=== PATIENT | male | born 1995 | race Hispanic/Latino ===

== ENCOUNTER 2018-04-04 20:11 | Emergency (ER) | payer SELFPAY ==
--- NOTE | 2018-04-04 21:23 | RAD REPORT ---
EXAM DESCRIPTION: CT - Head Brain Wo Cont - 04/04/2018 9:03 pm CLINICAL HISTORY: Headache and numbness COMPARISON: February 2017 TECHNIQUE: Computed axial tomography of the head was obtained. IV contrast was not requested. All CT scans are performed using dose optimization technique as appropriate and may include automated exposure control or mA/KV adjustment according to patient size. FINDINGS: An intracranial bleed is not seen . The ventricles are normal in caliber. No extra-axial fluid collection is noted. Fluid within the sinuses/ mastoids is not seen. IMPRESSION: No acute intracranial abnormality is seen. If patient's symptoms persist MRI of the bra in would be recommended.
--- NOTE | 2018-04-04 21:48 | EDPHYS ---
Physician Documentation [facility] Name: Zachary Davila Age: 22 yrs Sex: Male : 1995 Arrival Date: 04/04/2018 Time: 20:13 Bed 20 Private MD: ED Physician Cade Nguyen HPI: 04/04 20:45 This 22 yrs old Male presents to ER via Ambulatory with complaints of Numb on rn side of head for 3 days, Pain behind eye area. 20:45 The patient complains of pain to the right mormon, right side of the back of head and rn right occipital area. Onset: The symptoms/episode began/occurred 3 day(s) ago. Associated signs and symptoms: Pertinent positives: paresthesias, Pertinent negatives: altered mental status, fever, neck stiffness, rash, vision changes, vision loss, vomiting, weakness, vertigo. Headache History: The patient has had previous headaches and this one is similar to previous episodes. The patient has experienced similar episodes in the past. Reports headaches, pain behind right eye, +tingling over right scalp, reports on and off for months, worse over last 3 days, worse when bending over and bearing down, no trauma, no vision changes, reports gets bad to where he can't do anything, then goes away completely. No recent drug use but drug use in past. NO trauma. NO fever. . Historical: - Allergies: 20:28 NKA; aj1 - Home Meds: 20:28 None [Active]; aj1 - PMHx: 20:28 Anxiety; aj1 - PSHx: 20:28 None; aj1 - Immunization history:: Flu vaccine is not up to date. - Social history:: Smoking status: Patient uses tobacco products, denies chronic smoking, but will smoke occasionally. - Ebola Screening: : Patient denies travel to an Ebola-affected area in the 21 days before illness onset. - Family history:: not pertinent. - Hospitalizations: : No recent hospitalization is reported. ROS: 20:45 Constitutional: Negative for fever, chills, and weight loss, Eyes: Negative for injury, rn pain, redness, and discharge, Neck: Negative for injury, pain, and swelling, Cardiovascular: Negative for chest pain, palpitations, and edema, Respiratory: Negative for shortness of breath, cough, wheezing, and pleuritic chest pain, Abdomen/GI: Negative for abdominal pain, nausea, vomiting, diarrhea, and constipation, MS/Extremity: Negative for injury and deformity, Skin: Negative for injury, rash, and discoloration, Neuro: No current headache, + numbness of right scalp Exam: 20:45 Constitutional: This is a well developed, well nourished patient who is awake, alert, rn and in no acute distress. Head/Face: Normocephalic, atraumatic. Eyes: Pupils equal round and reactive to light, extra-ocular motions intact. Lids and lashes normal. Conjunctiva and sclera are non-icteric and not injected. Cornea within normal limits. Periorbital areas with no swelling, redness, or edema. ENT: Nares patent. No nasal discharge, no septal abnormalities noted. Oropharynx with no redness, swelling, or masses, exudates, or evidence of obstruction, uvula midline. Mucous membranes moist. Neck: Trachea midline, no thyromegaly or masses palpated, and no cervical lymphadenopathy. Supple, full range of motion without nuchal rigidity, or vertebral point tenderness. No Meningismus. Skin: Warm, dry with normal turgor. Normal color with no rashes, no lesions, and no evidence of cellulitis. MS/ Extremity: Pulses equal, no cyanosis. Neurovascular intact. Full, normal range of motion. Equal circumference. Neuro: Awake and alert, GCS 15, oriented to person, place, time, and situation. Cranial nerves II-XII grossly intact. Motor strength 5/5 in all extremities. Sensory grossly intact. Cerebellar exam normal. Normal gait. Vital Signs: 20:28 BP 127 / 85; Pulse 78; Resp 16; Temp 97.1; Pulse Ox 99% on R/A; Weight 68.04 kg (R); aj1 Height 5 ft. 4 in. (162.56 cm) (R); Pain 9/10; 20:28 Body Mass Index 25.75 (68.04 kg, 162.56 cm) aj1 [place] Coma Score: 21:45 Eye Response: spontaneous(4). Verbal Response: oriented(5). Motor Response: obeys rn commands(6). Total: 15. MDM: 20:35 Patient medically screened. rn 21:45 Differential diagnosis: hypertensive headache, migraine, tension headache, vasomotor rn headache. Data reviewed: vital signs, nurses notes, radiologic studies, CT scan, and as a result, I will discharge patient. Counseling: I had a detailed discussion with the patient and/or guardian regarding: the historical points, exam findings, and any diagnostic results supporting the discharge/admit diagnosis, radiology results, the need for outpatient follow up, to return to the emergency department if symptoms worsen or persist or if there are any questions or concerns that arise at home. Special discussion: I discussed with the patient/guardian in detail that at this point there is no indication for admission to the hospital. It is understood, however, that if the symptoms persist or worsen the patient needs to return immediately for re-evaluation. Based on the history and exam findings, there is no indication for further emergent testing or inpatient evaluation. I discussed with the patient/guardian the need to see the neurologist for further evaluation of the symptoms. 04/04 20:45 Order name: CT Head Brain wo Cont; Complete Time: 21:29 rn Administered Medications: No medications were administered Disposition: 04/04/18 21:47 Discharged to Home. Impression: Headache, Episodic cluster headache. - Condition is Stable. - Discharge Instructions: Cluster Headache, General Headache Without Cause. - Medication Reconciliation Form, Thank You Letter, Antibiotic Education, Prescription Opioid Use form. - Follow up: Private Physician; When: As needed; Reason: Recheck today's complaints, Re-evaluation by your physician. - Problem is chronic. - Symptoms have improved. Signatures: Dispatcher [employer] EDMS Cherri Bonilla RN RN aj1 Cade Nguyen MD MD rn Krenek, Amber, RN RN ak1 Corrections: (The following items were deleted from the chart) 21:52 21:47 04/04/2018 21:47 Discharged to Home. Impression: Headache; Episodic cluster ak1 headache. Condition is Stable. Forms are Medication Reconciliation Form, Thank You Letter, Antibiotic Education, Prescription Opioid Use. Follow up: Private Physician; When: As needed; Reason: Recheck today's complaints, Re-evaluation by your physician. Problem is chronic. Symptoms have improved. rn
--- NOTE | 2018-04-04 21:48 | ER ---
Nurse's Notes [facility] Name: Zachary Davila Age: 22 yrs Sex: Male : 1995 Arrival Date: 04/04/2018 Time: 20:13 Bed 20 Private MD: Diagnosis: Headache;Episodic cluster headache Presentation: 04/04 20:24 Presenting complaint: Patient states: He can feel the skin on his scalp on the right aj1 side of his head but "its numb on the inside" and it hurts behind his eyes. Reports that this has been going on for the past 3 days, but he has had numerous episodes like this. Patient reports he was seen for the same complaint in this ER one year ago. He is also hearing a beeping sound in his ears. Hand lockstitch sleeve setter are equal bilaterally, equal smile and eyebrow raises. Speech is clear. Transition of care: patient was not received from another setting of care. Onset of symptoms was April 01, 2018. Risk Assessment: Do you want to hurt yourself or someone else? Patient reports no desire to harm self or others. Initial Sepsis Screen: Does the patient meet any 2 criteria? No. Patient's initial sepsis screen is negative. Does the patient have a suspected source of infection? No. Patient's initial sepsis screen is negative. Care prior to arrival: None. 20:24 Method Of Arrival: Ambulatory aj1 20:24 Acuity: NIDIA 3 aj1 Triage Assessment: 20:28 General: Appears uncomfortable, Behavior is cooperative, anxious. Pain: Pain currently aj1 is 9 out of 10 on a pain scale. Neuro: Level of Consciousness is awake, alert, obeys commands, Oriented to person, place, time, situation, Sql Architect are equal bilaterally Moves all extremities. Gait is steady, Speech is normal, Facial symmetry appears normal. Cardiovascular: Patient's skin is warm and dry. Respiratory: Airway is patent Respiratory effort is even, unlabored, Respiratory pattern is regular, symmetrical. Historical: - Allergies: 20:28 NKA; aj1 - Home Meds: 20:28 None [Active]; aj1 - PMHx: 20:28 Anxiety; aj1 - PSHx: 20:28 None; aj1 - Immunization history:: Flu vaccine is not up to date. - Social history:: Smoking status: Patient uses tobacco products, denies chronic smoking, but will smoke occasionally. - Ebola Screening: : Patient denies travel to an Ebola-affected area in the 21 days before illness onset. - Family history:: not pertinent. - Hospitalizations: : No recent hospitalization is reported. Screenin:56 Abuse screen: Denies threats or abuse. Denies injuries from another. Nutritional ak1 screening: No deficits noted. Tuberculosis screening: No symptoms or risk factors identified. Fall Risk None identified. Assessment: 20:56 General: Appears in no apparent distress. Behavior is calm, cooperative. Pain: ak1 Complains of pain in right occipital area and right side of the back of head and right gnosticism. Neuro: Level of Consciousness is awake, alert, obeys commands, Oriented to person, place, time, situation, Sql Architect are equal bilaterally Moves all extremities. Gait is steady, Speech is normal, Facial symmetry appears normal. Cardiovascular: No deficits noted. Respiratory: No deficits noted. GI: No signs and/or symptoms were reported involving the gastrointestinal system. : No signs and/or symptoms were reported regarding the genitourinary system. EENT: No signs and/or symptoms were reported regarding the EENT system. Derm: No signs and/or symptoms reported regarding the dermatologic system. Musculoskeletal: No signs and/or symptoms reported regarding the musculoskeletal system. Vital Signs: 20:28 BP 127 / 85; Pulse 78; Resp 16; Temp 97.1; Pulse Ox 99% on R/A; Weight 68.04 kg (R); aj1 Height 5 ft. 4 in. (162.56 cm) (R); Pain 9/10; 20:28 Body Mass Index 25.75 (68.04 kg, 162.56 cm) aj1 [place] Coma Score: 21:45 Eye Response: spontaneous(4). Verbal Response: oriented(5). Motor Response: obeys rn commands(6). Total: 15. ED Course: 20:13 Patient arrived in ED. do 20:28 Triage completed. aj1 20:28 Arm band placed on Patient placed in an exam room. aj1 20:35 Cade Nguyen MD is Attending Physician. rn 20:50 Lilliana Hector RN is Primary Nurse. ak1 20:[address] via wheelchair. cw1 20:56 Patient has correct armband on for positive identification. Bed in low position. Call ak1 light in reach. Side rails up X 1. Pulse ox on. NIBP on. 20:58 No provider procedures requiring assistance completed. ak1 21:02 CT Head Brain wo Cont In Process Unspecified. EDMS 21:52 Patient did not have IV access during this emergency room visit. ak1 Administered Medications: No medications were administered Outcome: 21:47 Discharge ordered by . rn 21:51 Discharged to home ambulatory. ak1 21:51 Condition: good 21:51 Discharge instructions given to patient, Instructed on discharge instructions, follow up and referral plans. Demonstrated understanding of instructions, follow-up care. 21:52 Patient left the ED. ak1 Signatures: Dispatcher [employer] EDDE Cherri Bonilla RN RN aj1 Cade Nguyen MD MD rn Woodley, Crystal cwLilliana Levine RN RN ak1 Valarie Manning do
== END 2018-04-04 21:52 | disposition home or self-care (01) ==
LOC: ER 20:11
DX: G44.019 Episodic cluster headache, not intractable (principal); Z72.0 Tobacco use
CPT/HCPCS: 70450; 99284

== ENCOUNTER 2019-03-31 11:40 | Emergency (ER) | payer SELFPAY ==
[2019-03-31] MEDS ORDERED: LIDOCAINE 1% MPF 5 ML VIAL ONE (13:31)
[2019-03-31] MEDS ORDERED: BUPIVACAINE 0.5% PF 10 ML VIAL ONE (13:31)
[2019-03-31] MEDS ORDERED: IBUPROFEN 400 MG TAB ONE (13:38)
--- NOTE | 2019-03-31 14:32 | EDPHYS ---
Physician Documentation [facility] Name: Zachary Davila Age: 23 yrs Sex: Male : 1995 Arrival Date: 03/31/2019 Time: 11:42 Bed 6 Private MD: ED Physician Bobby Montenegro HPI: 03/31 13:15 This 23 yrs old Male presents to ER via Ambulatory with complaints of Ingrown cp Toenail. 13:15 The patient presents with pain, that is acute. The complaints affect the Left great cp toe. Context: resulted from an unknown cause, the patient can fully bear weight, the patient is able to ambulate, with mild difficulty. Onset: The symptoms/episode began/occurred yesterday. Historical: - Allergies: 12:14 NKA; aj1 - Home Meds: 12:14 None [Active]; aj1 - PMHx: 12:14 Anxiety; aj1 - PSHx: 12:14 None; aj1 - Immunization history:: Flu vaccine is not up to date. - Social history:: Smoking status: Patient uses tobacco products, denies chronic smoking, but will smoke occasionally. - Ebola Screening: : Patient denies travel to an Ebola-affected area in the 21 days before illness onset. ROS: 13:20 MS/extremity: Positive for pain, swelling, tenderness, of the left great toe, Negative cp for injury or acute deformity. 13:20 Constitutional: Negative for body aches, chills, fever, poor PO intake. 13:20 Cardiovascular: Negative for chest pain. 13:20 Respiratory: Negative for cough, shortness of breath, wheezing. 13:20 All other systems are negative. Exam: 13:30 Constitutional: The patient appears in no acute distress, alert, awake, non-toxic, well cp developed, well nourished. 13:30 Head/Face: Normocephalic, atraumatic. cp 13:30 Cardiovascular: Rate: normal, Rhythm: regular. 13:30 Respiratory: the patient does not display signs of respiratory distress, Respirations: normal. 13:30 Abdomen/GI: Inspection: abdomen appears normal. 13:30 Musculoskeletal/extremity: Extremities: grossly normal except: noted in the medial aspect nail left great toe: erythema, pain, swelling, tenderness, Perfusion: the extremity is normally perfused throughout, Sensation intact. Vital Signs: 12:14 BP 133 / 77; Pulse 79; Resp 18; Temp 98.2; Pulse Ox 99% on R/A; Weight 72.57 kg (R); aj1 Height 5 ft. 4 in. (162.56 cm) (R); 12:14 Body Mass Index 27.46 (72.57 kg, 162.56 cm) aj Procedures: 14:10 Performed Ingrown nail removal. Partial digital block performed with 5 ccs of mixture cp of 1% lidocaine w/o epi and 0.5% marcaine of left great toe. Toe cleaned with Betadine and using hemostats, partial nail removal of medial aspect of nail. Area cleaned and dressed. Patient tolerated well. MDM: 13:04 Patient medically screened. cp 14:00 Differential diagnosis: fracture, gout, cellulitis. cp 14:30 Data reviewed: vital signs, nurses notes, and as a result, I will discharge patient. cp 14:30 Counseling: I had a detailed discussion with the patient and/or guardian regarding: the cp historical points, exam findings, and any diagnostic results supporting the discharge/admit diagnosis, to return to the emergency department if symptoms worsen or persist or if there are any questions or concerns that arise at home. 14:30 Response to treatment: the patient's symptoms have markedly improved after treatment, cp and as a result, I will discharge patient. 03/31 13:11 Order name: Dressing - Wound; Complete Time: 13:32 cp 03/31 13:11 Order name: Gloves, Sterile; Complete Time: 13:28 cp 03/31 13:11 Order name: Setup Suture Tray; Complete Time: 13:28 cp Administered Medications: 13:27 Drug: Lidocaine (1 %) 10 ml Volume: 5 ml; Route: Infiltration; sg 13:35 Drug: Marcaine (0.5 %) 10 ml {Note: medication to be administered by Christofer Bassett} sg Volume: 10 ml; Route: Infiltration; 13:36 Drug: Ibuprofen 800 mg Route: PO; sg 14:45 Follow up: Response: No adverse reaction sg Disposition: 15:00 Chart complete. cp Disposition: 03/31/19 14:31 Discharged to Home. Impression: Ingrowing nail - left great toe. - Condition is Stable. - Discharge Instructions: Ingrown Toenail. - Prescriptions for Keflex 500 mg Oral Capsule - take 1 capsule by ORAL route every 6 hours for 10 days; 40 capsule. Ibuprofen 800 mg Oral Tablet - take 1 tablet by ORAL route every 8 hours As needed take with food; 30 tablet. - Work release form, Medication Reconciliation Form, Thank You Letter, Antibiotic Education, Prescription Opioid Use form. - Follow up: Av Mooney DPM; When: 48 Hours; Reason: Worsening of condition. - Problem is new. - Symptoms have improved. Addendum: 04/02/2019 07:41 Co-signature as Attending Physician, Bobby Montenegro MD I agree with the assessment and k dr plan of care. Signatures: Cherri Bonilla RN RN aj1 Hakeem Nobles RN RN sg Bobby Montenegro MD MD [facility] Juice Tineo PA PA cp Corrections: (The following items were deleted from the chart) 03/31 14:32 14:31 03/31/2019 14:31 Discharged to Home. Impression: Ingrowing nail. Condition is cp Stable. Forms are Medication Reconciliation Form, Thank You Letter, Antibiotic Education, Prescription Opioid Use. Follow up: Av Mooney; When: 48 Hours; Reason: Worsening of condition. Problem is new. Symptoms have improved. cp 14:48 14:32 03/31/2019 14:31 Discharged to Home. Impression: Ingrowing nail - left great toe. sg Condition is Stable. Discharge Instructions: Ingrown Toenail. Forms are Medication Reconciliation Form, Thank You Letter, Antibiotic Education, Prescription Opioid Use. Follow up: Avdia Mooney; When: 48 Hours; Reason: Worsening of condition. Problem is new. Symptoms have improved. cp
--- NOTE | 2019-03-31 14:32 | ER ---
Nurse's Notes [facility] Name: Zachary Davila Age: 23 yrs Sex: Male : 1995 Arrival Date: 03/31/2019 Time: 11:42 Bed 6 Private MD: Diagnosis: Ingrowing nail-left great toe Presentation: 03/31 12:13 Presenting complaint: Patient states: "I have an ingrown toenail and I can't walk and I aj1 can't go to work" Reports the pain started yesterday. Denies fever. Transition of care: patient was not received from another setting of care. Onset of symptoms was 2018. Risk Assessment: Do you want to hurt yourself or someone else? Patient reports no desire to harm self or others. Initial Sepsis Screen: Does the patient meet any 2 criteria? No. Patient's initial sepsis screen is negative. Does the patient have a suspected source of infection? No. Patient's initial sepsis screen is negative. Care prior to arrival: None. 12:13 Method Of Arrival: Ambulatory aj 12:13 Acuity: NIDIA 4 aj1 Triage Assessment: 12:14 General: Appears in no apparent distress. comfortable, Behavior is calm, cooperative, aj1 appropriate for age. Pain: Complains of pain in left foot Pain currently is 9 out of 10 on a pain scale. Neuro: Level of Consciousness is awake, alert, obeys commands. Cardiovascular: Patient's skin is warm and dry. Respiratory: Airway is patent Respiratory effort is even, unlabored, Respiratory pattern is regular, symmetrical. Historical: - Allergies: 12:14 NKA; aj1 - Home Meds: 12:14 None [Active]; aj1 - PMHx: 12:14 Anxiety; aj1 - PSHx: 12:14 None; aj1 - Immunization history:: Flu vaccine is not up to date. - Social history:: Smoking status: Patient uses tobacco products, denies chronic smoking, but will smoke occasionally. - Ebola Screening: : Patient denies travel to an Ebola-affected area in the 21 days before illness onset. Screenin:00 Abuse screen: Denies threats or abuse. Denies injuries from another. Nutritional sg screening: No deficits noted. Tuberculosis screening: No symptoms or risk factors identified. Never had TB. Fall Risk None identified. Assessment: 13:00 General: Appears in no apparent distress. comfortable, well groomed, well developed, sg well nourished, Behavior is calm, cooperative, appropriate for age. Pain: Complains of pain in Left first toenail Quality of pain is described as aching, throbbing. Neuro: Level of Consciousness is awake, alert, obeys commands, Oriented to person, place, time, situation, Gait is steady, Speech is normal, Facial symmetry appears normal. Cardiovascular: Patient's skin is warm and dry. Chest pain is denied. Respiratory: Airway is patent Respiratory effort is even, unlabored, Respiratory pattern is regular, symmetrical. GI: No signs and/or symptoms were reported involving the gastrointestinal system. : No signs and/or symptoms were reported regarding the genitourinary system. EENT: No signs and/or symptoms were reported regarding the EENT system. Derm: Skin is pink, warm \\T\\ dry. Musculoskeletal: Circulation, motion, and sensation intact. Range of motion: intact in all extremities. Musculoskeletal: Swelling present in Left first toenail. Vital Signs: 12:14 BP 133 / 77; Pulse 79; Resp 18; Temp 98.2; Pulse Ox 99% on R/A; Weight 72.57 kg (R); aj1 Height 5 ft. 4 in. (162.56 cm) (R); 12:14 Body Mass Index 27.46 (72.57 kg, 162.56 cm) aj1 ED Course: 11:42 Patient arrived in ED. rg4 12:14 Triage completed. aj1 12:14 Arm band placed on Patient placed in waiting room, Patient notified of wait time. aj1 12:40 Patient has correct armband on for positive identification. Bed in low position. Side sg rails up X2. Pulse ox on. NIBP on. Elevated left foot. 12:49 Juice Tineo PA is PHCP. cp 12:49 Bobby Montenegro MD is Attending Physician. cp 13:00 Assist provider with nail repair of ingrown nail of left great toe Set up for sg procedure. Performed by Juice BOBBY. 14:05 Hakeem Nobles, [place] is Primary Nurse. sg 14:30 Av Mooney DPM is Referral Physician. cp 14:45 Patient did not have IV access during this emergency room visit. Ortho shoe applied to sg left foot. Administered Medications: 13:27 Drug: Lidocaine (1 %) 10 ml Volume: 5 ml; Route: Infiltration; sg 13:35 Drug: Marcaine (0.5 %) 10 ml {Note: medication to be administered by Christofer BOBBY .} sg Volume: 10 ml; Route: Infiltration; 13:36 Drug: Ibuprofen 800 mg Route: PO; sg 14:45 Follow up: Response: No adverse reaction sg Outcome: 14:31 Discharge ordered by . arcelia 14:45 Discharged to home ambulatory, with friend. sg 14:45 Condition: good 14:45 Discharge instructions given to patient, Instructed on discharge instructions, follow up and referral plans. medication usage, safety practices, wound care, Demonstrated understanding of instructions, follow-up care, medications, wound care, Prescriptions given X 2. 14:48 Patient left the ED. sg Signatures: Cherri Bonilla RN RN aj1 Hakeem Nobles RN RN sg Page, Corey, PA PA cp Garcia, Rubi rg4 Corrections: (The following items were deleted from the chart) 14:13 13:00 Assist provider with nail repair of ingrown nail of left great toe Set up for sg procedure. Performed by Juice BOBBY Patient tolerated well. sg
[2019-03-31 14:54] VITALS: BP 133/77; TEMP 98.2; O2SAT 99
== END 2019-03-31 14:48 | disposition home or self-care (01) ==
LOC: ER 11:40
PROC: 0HBRXZZ Excision of Toe Nail, External Approach (ICD-10-PCS; principal; 2019-03-31)
DX: L60.0 Ingrowing nail (principal); Z72.0 Tobacco use
CPT/HCPCS: 99284

== ENCOUNTER 2019-05-02 16:08 | Emergency (ER) | payer SELFPAY ==
--- OUTSIDE RECORDS SUMMARY | 2019-05-02 16:12 | XMS REPORT ---
:1995 [facility] Address [address] [place] [address] Dr. Howard [address] [place] [id number] Care Team Providers Name Role Phone Unavailable Unavailable Unavailable Problems This patient has no known problems. Allergies, Adverse Reactions, Alerts This patient has no known allergies or adverse reactions. Medications This patient has no known medications.
--- NOTE | 2019-05-02 17:37 | RAD REPORT ---
EXAM DESCRIPTION: CT - Head Brain Wo Cont - 05/02/2019 5:26 pm CLINICAL HISTORY: Persistent head and facial pain following trauma 2 days earlier COMPARISON: None. TECHNIQUE: Axial 5 mm thick images of the head were obtained without IV contrast. All CT scans are performed using dose optimization technique as appropriate and may include automated exposure control or mA/KV adjustment according to patient size. FINDINGS: No intracranial hemorrhage, mass, edema or shift of mid-line structures. No acute infarcti on changes seen. No abnormal extra-axial fluid collections. Ventricles are normal. Mastoid air cells are clear. Facial bones, orbits and sinuses are separately detailed. No acute bony findings. IMPRESSION: No intracranial abnormality. Orbits, sinuses and facial bones are separately detailed.
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
[2019-05-02] MEDS ORDERED: CLINDAMYCIN IV 150 MG/ML (4 mL) VIAL ONE (17:44)
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
[2019-05-02 18:55] VITALS: BP 126/77; TEMP 98.2; O2SAT 99
== END 2019-05-02 18:44 | disposition home or self-care (01) ==
LOC: ER 16:08
DX: S02.2XXA Fracture of nasal bones, initial encounter for closed fracture (principal); S06.9X0A Unspecified intracranial injury without loss of consciousness, initial encounter; S20.219A Contusion of unspecified front wall of thorax, initial encounter; S01.511A Laceration without foreign body of lip, initial encounter; V43.52XA Car driver injured in collision with other type car in traffic accident, initial encounter; Y93.89 Activity, other specified; Y92.410 Unspecified street and highway as the place of occurrence of the external cause
CPT/HCPCS: 70450; 70486; 71046; 76377; 96372; 99283; S0077

== ENCOUNTER 2020-05-04 11:24 | Emergency (ER) | payer SELFPAY ==
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
--- OUTSIDE RECORDS SUMMARY | 2020-05-04 11:39 | XMS REPORT | Continuity of Care Document ---
:1995 Author Organization [facility] t Address [address] [place] [address] Care Team Providers Name Role Phone Peri Green Attending Clinician Problems This patient has no known problems. Allergies, Adverse Reactions, Alerts This patient has no known allergies or adverse reactions. Medications This patient has no known medications. Procedures This patient has no known procedures. Encounters Start End Encounter Admission Attending Care Care Encounter Source Date/Time Date/Time Type Type Clinicians Facility Department ID 2020-05-01 2020-05-01 Emergency KRYSTA Apple [id number] 19:01:00 21:14:00 Peri [place] [id number] [place] [id number] [place] [id number] Results This patient has no known results.
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
[2020-05-04] MEDS ORDERED: SMZ./TMP. 800/160 MG TABLET ONE (11:56)
[2020-05-04 18:45] VITALS: TEMP 97.6; O2SAT 100
[2020-05-04 19:00] VITALS: BP 140/80
== END 2020-05-04 11:47 | disposition home or self-care (01) ==
LOC: ER 11:24
DX: T23.272A Burn of second degree of left wrist, initial encounter (principal); T23.271A Burn of second degree of right wrist, initial encounter; T31.0 Burns involving less than 10% of body surface; Y93.89 Activity, other specified; Y92.89 Other specified places as the place of occurrence of the external cause; Y99.8 Other external cause status
CPT/HCPCS: 99283

== ENCOUNTER 2020-07-26 19:03 | Emergency (ER) | payer SELFPAY ==
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
--- OUTSIDE RECORDS SUMMARY | 2020-07-26 20:26 | XMS REPORT | Continuity of Care Document ---
:1995 Author Organization [facility] t Address [facility] [place] [address] Care Team Providers Name Role Phone Doctor Unassigned, Aldan Attending Clinician Unavailable Ollie Urrutia MD Attending Clinician Ricardo Green Attending Clinician Problems This patient has no known problems. Allergies, Adverse Reactions, Alerts This patient has no known allergies or adverse reactions. Medications This patient has no known medications. Procedures This patient has no known procedures. Encounters Start End Encounter Admission Attending Care Care Encounter Source Date/Time Date/Time Type Type Clinicians Facility Department ID 2020-05-24 2020-05-24 Orders Doctor [facility] [id number] 00:00:00 00:00:00 Only UnassignedRUBINA [id number] [place] [id number] 2020-05-15 2020-05-15 [facility] Marisela Urrutia [id number] 12:10:48 23:59:00 Encounter Aleks Bills [id number] 2020-05-04 2020-05-04 [facility] Renan Marisela [id number] 12:30:00 23:59:00 Encounter Aleks Bills [id number] 2020-05-01 2020-05-01 Emergency [facility] [id number] 19:01:00 21:14:00 [place]i [place] [id number] [place] [id number] [place] [id number] Results This patient has no known results.
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
--- OUTSIDE RECORDS SUMMARY | 2020-07-26 20:27 | XMS REPORT | Summary of Care ---
:1995 Author Organization [facility] - Health Address [address] [place] [id number] Care Team Providers Name Role Phone Pcp, Patient Does Not Have A Primary Care Provider +[id number] 0-0000 Encounter Details Date Type Department Care Team Description 05/24/2020 Orders Only [facility] Doctor Unassigned, No 301 [facility] Name [place] [phone] [place] [address] Allergies No Known Allergiesdocumented as of this encounter (statuses as of 05/24/2020) Medications Medication Sig Dispensed Refills Start Date End Date Status mupirocin 2 % Apply to area(s) 30 g 0 05/01/2020 Active ointmentIndications: 3 (three) times Chemical burn daily. hydrOXYzine 25 mg Take 1 tablet by 16 tablet 0 05/01/2020 Active tabletIndications: mouth every 6 Chemical burn (six) hours as needed for Itching. documented as of this encounter (statuses as of 05/24/2020) Active Problems Not on filedocumented as of this encounter (statuses as of 05/24/2020) Immunizations Name Administration Dates Next Due Td 05/01/2020 () documented as of this encounter Social History Tobacco Use Types Packs/Day Years Used Date Never Assessed Sex Assigned at Date Recorded Not on file COVID-19 Exposure Response Date Recorded In the last month, have you been in contact with No / Unsure 05/15/2020 2:25 PM MD PEDIATRIC ALLERGIST someone who was confirmed or suspected to have Coronavirus / COVID-19? documented as of this encounter Last Filed Vital Signs Not on filedocumented in this encounter Plan of Treatment Health Maintenance Due Date Last Done Comments VARICELLA VACCINES ( - 1994 2-dose childhood series) HPV VACCINES (1 - Male 2-dose 2004 series) Depression Screening 2005 DTaP,Tdap,and Td Vaccines (1 - 2012 Tdap) INFLUENZA VACCINE (#1) 2020 PNEUMOCOCCAL 0-64 YEARS COMBINED Aged Out No longer eligible based on SERIES patient's age to complete this topic documented as of this encounter Procedures Procedure Name Priority Date/Time Associated Diagnosis Comme nts EXTERNAL PROVIDER Routine 05/24/2020 12:01 AM MD PEDIATRIC ALLERGIST RECORDS documented in this encounter Results Not on filedocumented in this encounter
--- NOTE | 2020-07-26 20:54 | ER ---
Nurse's Notes [facility] Name: Zachary Davila Age: 24 yrs Sex: Male : 1995 Arrival Date: 07/26/2020 Time: 19:06 Bed 15 Private MD: Diagnosis: Irritant contact dermatitis Presentation: 07/26 19:37 Chief complaint: Patient states: I woke up at 0530 and noticed swelling on my right jb4 hand, ear, and under my right eye. It has not gotten any better and has been itching. 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 I think I may be having a reaction to something. Coronavirus screen: Client denies travel out of the [place] in the last 14 days. Ebola Screen: Patient negative for fever greater than or equal to 101.5 degrees Fahrenheit, and additional compatible Ebola Virus Disease symptoms. Initial Sepsis Screen: Does the patient meet any 2 criteria? No. Patient's initial sepsis screen is negative. Does the patient have a suspected source of infection? No. Patient's initial sepsis screen is negative. Risk Assessment: Do you want to hurt yourself or someone else? Patient reports no desire to harm self or others. Onset of symptoms was July 26, 2020. Transition of care: patient was not received from another setting of care. 19:37 Method Of Arrival: Ambulatory [facility] 19:37 Acuity: NIDIA 4 jb4 Historical: - Allergies: 19:40 NKA; jb4 - Home Meds: 19:40 None [Active]; jb4 - PMHx: 19:40 Anxiety; jb4 - PSHx: 19:40 None; jb4 - Immunization history:: Adult Immunizations up to date, Last tetanus immunization: up to date. - Social history:: Smoking status: Patient denies any tobacco usage or history of. Patient uses alcohol, occasionally. Patient/guardian denies using street drugs. Screenin:12 Abuse screen: Denies threats or abuse. Denies injuries from another. Nutritional sf screening: No deficits noted. Tuberculosis screening: No symptoms or risk factors identified. Never had TB. Possible symptoms: None Risk factors: None. Fall Risk None identified. No fall in past 12 months (0 pts). No secondary diagnosis (0 pts). No IV (0 pts). Ambulatory Aid- None/Bed Rest/Nurse Assist (0 pts). Gait- Normal/Bed Rest/Wheelchair (0 pts) Mental Status- Oriented to own ability (0 pts). Total Olivas Fall Scale indicates No Risk (0-24 pts). Assessment: 21:00 General: Appears in no apparent distress. comfortable, Behavior is calm, cooperative, sf appropriate for age. Pain: Denies pain. Neuro: No deficits noted. Level of Consciousness is awake, alert, Oriented to person, place, time, situation, Appropriate for age. Cardiovascular: No deficits noted. Patient's skin is warm and dry. Respiratory: No deficits noted. Airway is patent Respiratory effort is even, unlabored, Respiratory pattern is regular, symmetrical. Derm: Swelling and redness to right eye, right hand, behind right ear Reports itching. Vital Signs: 19:37 BP 130 / 82; Pulse 70; Resp 17; Temp 98.5(TE); Pulse Ox 99% on R/A; Weight 77.11 kg jb4 (R); Height 5 ft. 4 in. (162.56 cm); Pain 8/10; 21:00 BP 139 / 94; Pulse 65; Resp 16; Pulse Ox 98% ; sf 19:37 Body Mass Index 29.18 (77.11 kg, 162.56 cm) jb4 ED Course: 19:06 Patient arrived in ED. ag3 19:40 Triage completed. jb4 19:40 Arm band placed on right wrist. jb4 19:46 Juice Tineo PA is [facility]. cp 19:46 Yessica Bloom MD is Attending Physician. cp 20:41 Hakeem Roman, [place] is Primary Nurse. sf 21:00 Patient has correct armband on for positive identification. Bed in low position. Call sf light in reach. Side rails up X 1. 21:13 No provider procedures requiring assistance completed. Patient did not have IV access sf during this emergency room visit. Administered Medications: 21:00 Drug: SOLU-Medrol 125 mg Route: IM; Site: Ventrogluteal LEFT; sf 21:12 Follow up: Response: No adverse reaction sf Outcome: 20:53 Discharge ordered by MD. cp 21:13 Discharged to home ambulatory. sf 21:13 Condition: stable 21:13 Discharge instructions given to patient, Instructed on discharge instructions, follow up and referral plans. medication usage, Demonstrated understanding of instructions, follow-up care, medications, Prescriptions given X 2. 21:14 Patient left the ED. sf Signatures: Juice Tineo PA PA cp Bryson, James, RN RN jb4 Kaitlin Ingram3 Hakeem Roman RN RN sf
--- NOTE | 2020-07-26 20:54 | EDPHYS ---
Physician Documentation [facility] Name: Zachary Davila Age: 24 yrs Sex: Male : 1995 Arrival Date: 07/26/2020 Time: 19:06 Bed 15 Private MD: ED Physician Yessica Bloom HPI: 07/26 20:02 This 24 yrs old Male presents to ER via Ambulatory with complaints of Eye cp Swelling. 20:02 The patient is experiencing redness, swelling, caused by an unknown mechanism, below cp right eye. Onset: The symptoms/episode began/occurred yesterday. Duration: the symptoms are continuous. Associated signs and symptoms: Pertinent negatives: fever, drainage from eye. Severity of symptoms: in the emergency department the symptoms are unchanged. 20:02 Patient reports he may have contacted something at work yesterday prior to noticing cp swelling below right eye, rash and swelling of right ear and rash on right hand. Historical: - Allergies: 19:40 NKA; jb4 - Home Meds: 19:40 None [Active]; jb4 - PMHx: 19:40 Anxiety; jb4 - PSHx: 19:40 None; jb4 - Immunization history:: Adult Immunizations up to date, Last tetanus immunization: up to date. - Social history:: Smoking status: Patient denies any tobacco usage or history of. Patient uses alcohol, occasionally. Patient/guardian denies using street drugs. ROS: 20:05 Constitutional: Negative for body aches, chills, fever. cp 20:05 Eyes: Negative for discharge, pain, visual disturbance. 20:05 ENT: Negative for drainage from ear(s), sore throat, difficulty swallowing, difficulty handling secretions. 20:05 Respiratory: Negative for cough, shortness of breath, wheezing. 20:05 Abdomen/GI: Negative for nausea, vomiting, and diarrhea. 20:05 Skin: Positive for erythema, swelling, of the right hand and right ear and below right eye. Exam: 20:10 Constitutional: The patient appears in no acute distress, alert, awake, non-toxic, well cp developed, well nourished. 20:10 Head/Face: Normocephalic, atraumatic. cp 20:10 Eyes: Periorbital structures: erythema, that is mild, on the right lower lid, swelling, that is mild, on the right lower lid, Pupils: equal, round, and reactive to light and accomodation, Extraocular movements: intact throughout, Conjunctiva: normal, no exudate, no injection, Sclera: no appreciated abnormality. 20:10 ENT: External ear(s): erythema, that is minimal, of the pinna of right ear and right ear lobe, swelling, that is minimal, of the pinna of right ear and right ear lobe, Ear canal(s): are normal, clear, TM's: dullness, bilaterally, Nose: is normal, Mouth: Lips: moist, Oral mucosa: moist, Posterior pharynx: is normal, airway is patent, no erythema, no exudate. 20:10 Neck: ROM/movement: is normal, is supple, without pain, no range of motions limitations, Lymph nodes: no appreciated lymphadenopathy. 20:10 Chest/axilla: Inspection: normal, Palpation: is normal, no crepitus, no tenderness. 20:10 Cardiovascular: Rate: normal, Rhythm: regular. 20:10 Respiratory: the patient does not display signs of respiratory distress, Respirations: normal, no use of accessory muscles, no retractions, labored breathing, is not present, Breath sounds: are clear throughout, no decreased breath sounds, no stridor, no wheezing. 20:10 Skin: consistent with contact dermatitis, on the fingers of right hand. Vital Signs: 19:37 BP 130 / 82; Pulse 70; Resp 17; Temp 98.5(TE); Pulse Ox 99% on R/A; Weight 77.11 kg jb4 (R); Height 5 ft. 4 in. (162.56 cm); Pain 8/10; 21:00 BP 139 / 94; Pulse 65; Resp 16; Pulse Ox 98% ; sf 19:37 Body Mass Index 29.18 (77.11 kg, 162.56 cm) jb4 MDM: 19:47 Patient medically screened. cp 20:15 Differential diagnosis: allergic reaction, contact dermatitis, irritant dermatitis. cp 20:52 Data reviewed: vital signs, nurses notes. cp 20:52 Counseling: I had a detailed discussion with the patient and/or guardian regarding: the cp historical points, exam findings, and any diagnostic results supporting the discharge/admit diagnosis, to return to the emergency department if symptoms worsen or persist or if there are any questions or concerns that arise at home. Response to treatment: There is no appreciated change of the patient's symptoms at this time, and as a result, I will discharge patient. Administered Medications: 21:00 Drug: SOLU-Medrol 125 mg Route: IM; Site: Ventrogluteal LEFT; sf 21:12 Follow up: Response: No adverse reaction sf Disposition: 20:00 Chart complete. cp 07/27 04:27 Co-signature as Attending Physician, Yessica Bloom MD. ma2 Disposition: 07/26/20 20:53 Discharged to Home. Impression: Irritant contact dermatitis. - Condition is Stable. - Discharge Instructions: Contact Dermatitis, Form - Return To Work. - Prescriptions for Hydrocortisone 0.5 % Topical Cream - apply 1 application by TOPICAL route every 12 hours As needed may apply to areas of skin as directed except face for next 5-7 days; 30 gram. Prednisone 20 mg Oral Tablet - take 2 tablet by ORAL route once daily for 5 days; 10 tablet. - Medication Reconciliation Form, Thank You Letter, Antibiotic Education, Prescription Opioid Use form. - Follow up: Private Physician; When: 1 - 2 days; Reason: Worsening of condition. - Problem is new. - Symptoms have improved. Signatures: Juice Tineo PA PA cp Reyes Lawton, [place] RN jb4 Yessica Bloom MD MD ma2 Hakeem Roman RN RN sf Corrections: (The following items were deleted from the chart) 07/26 20:54 20:53 07/26/2020 20:53 Discharged to Home. Impression: Allergic contact dermatitis; cp Irritant contact dermatitis. Condition is Stable. Forms are Medication Reconciliation Form, Thank You Letter, Antibiotic Education, Prescription Opioid Use. Follow up: Private Physician; When: 1 - 2 days; Reason: Worsening of condition. Problem is new. Symptoms have improved. cp 21:14 20:54 07/26/2020 20:53 Discharged to Home. Impression: Irritant contact dermatitis. sf Condition is Stable. Discharge Instructions: Contact Dermatitis. Forms are Medication Reconciliation Form, Thank You Letter, Antibiotic Education, Prescription Opioid Use. Follow up: Private Physician; When: 1 - 2 days; Reason: Worsening of condition. Problem is new. Symptoms have improved. cp
[2020-07-26] MEDS ORDERED: METHYLPREDNISOLONE 125 MG INJ ONE (21:15)
[2020-07-26 21:18] VITALS: TEMP 98.5
[2020-07-26 21:20] VITALS: BP 139/94; O2SAT 98
== END 2020-07-26 21:14 | disposition home or self-care (01) ==
LOC: ER 19:03
DX: L24.9 Irritant contact dermatitis, unspecified cause (principal); F41.9 Anxiety disorder, unspecified
CPT/HCPCS: 96372; 99283; J2930

== ENCOUNTER 2020-10-13 08:21 | Emergency (ER) | payer SELFPAY ==
--- OUTSIDE RECORDS SUMMARY | 2020-10-13 08:25 | XMS REPORT | Continuity of Care Document ---
:1995 Author Organization [facility] t Address [facility] [place] [address] Care Team Providers Name Role Phone Doctor Unassigned, [place] Attending Clinician Unavailable Ollie Urrutia MD Attending [...] ID 2020-05-24 2020-05-24 Orders Doctor SOUTH [id number] 00:00:00 00:00:00 Only UnassignedRUBINA [id number] [place] [phone] [id number] 2020-05-15 2020-05-15 [facility] Marisela Urrutia [id number] 12:10:48 23:59:00 Encounter Aleks Bills [phone] [id number] 2020-05-04 2020-05-04 [facility] Renan Marisela [id number] 12:30:00 23:59:00 Encounter Aleks Bills [phone] [id number] 2020-05-01 2020-05-01 Emergency Zechariah [facility] [id number] 19:01:00 21:14:00 Peri [place] [id number] [place] [id number] [place] [phone] [id number] Results This patient has no known results.
--- NOTE | 2020-10-13 08:46 | RAD REPORT ---
EXAM DESCRIPTION: CT - Head Brain Wo Cont - 10/13/2020 8:39 am CLINICAL HISTORY: DIZZINESS Headache, drowsiness COMPARISON: Facial Bones W/ Mpr dated 05/02/2019; Head Brain Wo Cont dated 05/02/2019 TECHNIQUE: All CT scans are performed using dose optimization technique as appropriate and may inclu de automated exposure control or mA/KV adjustment according to patient size. FINDINGS: No intracranial hemorrhage, hydrocephalus or extra-axial fluid collection.No areas of brai n edema or evidence of midline shift. The paranasal sinuses and mastoids are clear. The calvarium is intact. IMPRESSION: No acute intracranial abnormality.
[2020-10-13 09:14] LABS: Urine Blood Negative (Negative); Urine Glucose Negative (Negative); Urine Protein Negative (Negative); Urine Specific Gravity 1.015 (1.005-1.030)
[2020-10-13 10:26] LABS: Barbiturates NEGATIVE (NEGATIVE); Benzodiazepines NEGATIVE (NEGATIVE); Cocaine NEGATIVE (NEGATIVE); METHAMPHETAM NEGATIVE (NEGATIVE); Methadone NEGATIVE (NEGATIVE); Opiates NEGATIVE (NEGATIVE); Phencyclidine NEGATIVE (NEGATIVE); THC Cannibis NEGATIVE (NEGATIVE)
--- NOTE | 2020-10-13 10:38 | EDPHYS ---
Physician Documentation [facility] Name: Zachary Davila Age: 24 yrs Sex: Male : 1995 Arrival Date: 10/13/2020 Time: 08:23 Bed 27 Private MD: ED Physician Juice Farnsworth HPI: 10/13 10:28 This 24 yrs old Male presents to ER via Ambulatory with complaints of Numbness wiliam Of Face. 10:28 The patient's problem is reported as numbness of right side of head. Onset: The wiliam symptoms/episode began/occurred 7 day(s) ago. Duration: The episode is continuous. Context: the episode(s) was witnessed, by no one, symptoms became apparent 1 week. The symptoms are alleviated by nothing. The symptoms are aggravated by nothing. Associated signs and symptoms: The patient has no apparent associated signs or symptoms. Severity of symptoms: At their worst the symptoms were mild in the emergency department the symptoms are unchanged. Patient's baseline: Neuro: alert and fully oriented. The patient has not experienced similar symptoms in the past. Historical: - Allergies: 08:29 NKA; hb - Home Meds: 08:29 None [Active]; hb - PMHx: 08:29 Anxiety; hb - PSHx: 08:29 None; hb - Immunization history:: Adult Immunizations up to date. - Social history:: Smoking status: Patient denies any tobacco usage or history of. - Family history:: not pertinent. ROS: 10:28 Constitutional: Negative for fever, chills, and weight loss, Eyes: Negative for injury, wiliam pain, redness, and discharge, ENT: Negative for injury, pain, and discharge, Neck: Negative for injury, pain, and swelling, Cardiovascular: Negative for chest pain, palpitations, and edema, Respiratory: Negative for shortness of breath, cough, wheezing, and pleuritic chest pain, Abdomen/GI: Negative for abdominal pain, nausea, vomiting, diarrhea, and constipation, Back: Negative for injury and pain, : Negative for injury, bleeding, discharge, and swelling, MS/Extremity: Negative for injury and deformity, Skin: Negative for injury, rash, and discoloration, Psych: Negative for depression, anxiety, suicide ideation, homicidal ideation, and hallucinations, Allergy/Immunology: Negative for hives, rash, and allergies, Endocrine: Negative for neck swelling, polydipsia, polyuria, polyphagia, and marked weight changes, Hematologic/Lymphatic: Negative for swollen nodes, abnormal bleeding, and unusual bruising. 10:28 Neuro: Positive for numbness, of the right side of forehead and right temporal area and right frontal area. 10:28 Psych: Positive for anxiety. Exam: 10:28 Radiologist reports: negative wiliam 10:28 Constitutional: This is a well developed, well nourished patient who is awake, alert, and in no acute distress. Head/Face: Normocephalic, atraumatic. Eyes: Pupils equal round and reactive to light, extra-ocular motions intact. Lids and lashes normal. Conjunctiva and sclera are non-icteric and not injected. Cornea within normal limits. Periorbital areas with no swelling, redness, or edema. ENT: Nares patent. No nasal discharge, no septal abnormalities noted. Tympanic membranes are normal and external auditory canals are clear. Oropharynx with no redness, swelling, or masses, exudates, or evidence of obstruction, uvula midline. Mucous membranes moist. Neck: Trachea midline, no thyromegaly or masses palpated, and no cervical lymphadenopathy. Supple, full range of motion without nuchal rigidity, or vertebral point tenderness. No Meningismus. Chest/axilla: Normal chest wall appearance and motion. Nontender with no deformity. No lesions are appreciated. Cardiovascular: Regular rate and rhythm with a normal S1 and S2. No gallops, murmurs, or rubs. Normal PMI, no JVD. No pulse deficits. Respiratory: Lungs have equal breath sounds bilaterally, clear to auscultation and percussion. No rales, rhonchi or wheezes noted. No increased work of breathing, no retractions or nasal flaring. Abdomen/GI: Soft, non-tender, with normal bowel sounds. No distension or tympany. No guarding or rebound. No evidence of tenderness throughout. Back: No spinal tenderness. No costovertebral tenderness. Full range of motion. Male : Normal genitalia with no discharge or lesions. Skin: Warm, dry with normal turgor. Normal color with no rashes, no lesions, and no evidence of cellulitis. MS/ Extremity: Pulses equal, no cyanosis. Neurovascular intact. Full, normal range of motion. Neuro: Awake and alert, GCS 15, oriented to person, place, time, and situation. Cranial nerves II-XII grossly intact. Motor strength 5/5 in all extremities. Sensory grossly intact. Cerebellar exam normal. Normal gait. Psych: Awake, alert, with orientation to person, place and time. Behavior, mood, and affect are within normal limits. 10:39 ECG was reviewed by the Attending Physician. [facility] Vital Signs: 08:26 BP 151 / 96; Pulse 88; Resp 16; Temp 97.2; Pulse Ox 100% on R/A; Pain 2/10; hb 09:30 BP 127 / 92; Pulse 82; Resp 20; Pulse Ox 98% on R/A; kg 10:30 BP 131 / 94; Pulse 80; Resp 20; Pulse Ox 96% on R/A; kg MDM: 08:31 [facility] medically screened. [facility] 10:32 Differential diagnosis: CVA, TIA, metabolic disorder, drug effects. Data reviewed: [facility] vital signs, nurses notes, lab test result(s), EKG, radiologic studies, CT scan. Data interpreted: clinical research monitor: rate is 88 beats/min, rhythm is regular, Pulse oximetry: on room air is 100 %. Test interpretation: by ED physician or midlevel provider: ECG. Counseling: I had a detailed discussion with the patient and/or guardian regarding: the historical points, exam findings, and any diagnostic results supporting the discharge/admit diagnosis, lab results, radiology results, the need for outpatient follow up, for definitive care, a family practitioner, a neurologist. 10/13 08:31 Order name: UDS; Complete Time: 10:28 [facility] 10/13 09:14 Order name: Urine Dipstick-Ancillary; Complete Time: 10:28 EDMS 10/13 08:31 Order name: EKG; Complete Time: 08:31 [facility] 10/13 08:31 Order name: CT Head Brain wo Cont; Complete Time: 10:28 [facility] 10/13 08:31 Order name: Urine Dipstick-Ancillary (obtain specimen); Complete Time: 11:04 [facility] 10/13 08:31 Order name: EKG - Nurse/Tech; Complete Time: 10:40 [facility] EC:39 Rate is 65 beats/min. Rhythm is regular. QRS [place] is Normal. TN interval is normal. QRS wiliam interval is normal. QT interval is normal. No Q waves. T waves are Normal. No ST changes noted. Clinical impression: Normal ECG and No evidence of ischemia. Interpreted by me. Reviewed by me. Administered Medications: 10:35 Drug: hydrOXYzine 25 mg Route: PO; kg 11:04 Follow up: Response: No adverse reaction kg 10:58 Not Given (Patient Refused): Aspirin 162 mg PO once kg Disposition: 10/13/20 10:37 Discharged to Home. Impression: Anxiety disorder, unspecified. - Condition is Stable. - Discharge Instructions: Panic Attacks, Panic Attacks, [id number], Aspirin and Your Heart. - Prescriptions for Hydroxyzine HCl 25 mg Oral Tablet - take 1 tablet by ORAL route every 6 hours As needed; 30 tablet. - Medication Reconciliation Form, Thank You Letter, Antibiotic Education, Prescription Opioid Use form. - Follow up: Private Physician; When: 2 - 3 days; Reason: Recheck today's complaints, Continuance of care, Re-evaluation by your physician. Follow up: Ludwin Sanchez MD; When: 2 - 3 days; Reason: Recheck today's complaints, Continuance of care, Re-evaluation by your physician. Follow up: Sagar Lemon MD; When: 2 - 3 days; Reason: Recheck today's complaints, Re-evaluation by your physician. - Problem is new. - Symptoms have improved. Signatures: Dispatcher [employer] Juice Santos MD MD cha Baxter, Heather, RN RN Lashawn Stewart Corrections: (The following items were deleted from the chart) 11:05 10:37 10/13/2020 10:37 Discharged to Home. Impression: Anxiety disorder, unspecified. kg Condition is Stable. Forms are Medication Reconciliation Form, Thank You Letter, Antibiotic Education, Prescription Opioid Use. Follow up: Private Physician; When: 2 - 3 days; Reason: Recheck today's complaints, Continuance of care, Re-evaluation by your physician. Follow up: Ludwin Sanchez; When: 2 - 3 days; Reason: Recheck today's complaints, Continuance of care, Re-evaluation by your physician. Follow up: Sagar Lemon; When: 2 - 3 days; Reason: Recheck today's complaints, Re-evaluation by your physician. Problem is new. Symptoms have improved. wiliam
--- NOTE | 2020-10-13 10:38 | ER ---
Nurse's Notes [facility] Name: Zachary Davila Age: 24 yrs Sex: Male : 1995 Arrival Date: 10/13/2020 Time: 08:23 Bed 27 Private MD: Diagnosis: Anxiety disorder, unspecified Presentation: 10/13 08:26 Chief complaint: Intermittent right sided head numbness/tightness and nausea x 2 days. hb Reports this is similar to his previous cluster headaches. Coronavirus screen: At this time, the client does not indicate any symptoms associated with coronavirus-19. Ebola Screen: No symptoms or risks identified at this time. Initial Sepsis Screen: Does the patient meet any 2 criteria? No. Patient's initial sepsis screen is negative. Does the patient have a suspected source of infection? No. Patient's initial sepsis screen is negative. Risk Assessment: Do you want to hurt yourself or someone else? Patient reports no desire to harm self or others. Onset of symptoms was October 11, 2020. 08:26 Method Of Arrival: Ambulatory hb 08:26 Acuity: NIDIA 3 hb Historical: - Allergies: 08:29 NKA; hb - Home Meds: 08:29 None [Active]; hb - PMHx: 08:29 Anxiety; hb - PSHx: 08:29 None; hb - Immunization history:: Adult Immunizations up to date. - Social history:: Smoking status: Patient denies any tobacco usage or history of. - Family history:: not pertinent. Screenin:20 Abuse screen: Denies threats or abuse. Nutritional screening: No deficits noted. kg Tuberculosis screening: No symptoms or risk factors identified. Fall Risk None identified. Assessment: 09:18 General: Appears in no apparent distress. Behavior is calm, cooperative, appropriate kg for age, quiet. Pain: Denies pain. Neuro: Level of Consciousness is awake, alert, obeys commands, Oriented to person, place, time, situation, Appropriate for age Tube And Manifold Builder are equal bilaterally Moves all extremities. Full function Gait is steady, Speech Reports numbness in right hinduism, right frontal area, right temporal area and right side of forehead since Two days ago. Cardiovascular: No deficits noted. Respiratory: No deficits noted. GI: No deficits noted. : No deficits noted. EENT: No deficits noted. Derm: No deficits noted. Musculoskeletal: No deficits noted. Vital Signs: 08:26 BP 151 / 96; Pulse 88; Resp 16; Temp 97.2; Pulse Ox 100% on R/A; Pain 2/10; hb 09:30 BP 127 / 92; Pulse 82; Resp 20; Pulse Ox 98% on R/A; kg 10:30 BP 131 / 94; Pulse 80; Resp 20; Pulse Ox 96% on R/A; kg ED Course: 08:23 Patient arrived in ED. as 08:29 Triage completed. hb 08:29 Juice Farnsworth MD is Attending Physician. wiliam 08:29 Arm band placed on. hb 08:39 CT Head Brain wo Cont In Process Unspecified. EDMS 09:17 Lashawn Stewart is Primary Nurse. kg 09:17 UDS Sent. kg 09:20 Patient has correct armband on for positive identification. Bed in low position. Call kg light in reach. Side rails up X 1. 10:36 Ludwin Sanchez MD is Referral Physician. [facility] 10:36 Sagar Lemon MD is Referral Physician. [facility] 10:53 EKG done, by ED staff, reviewed by Juice Farnsworth MD. em1 11:00 No provider procedures requiring assistance completed. Patient did not have IV access kg during this emergency room visit. Administered Medications: 10:35 Drug: hydrOXYzine 25 mg Route: PO; kg 11:04 Follow up: Response: No adverse reaction kg 10:58 Not Given (Patient Refused): Aspirin 162 mg PO once kg Outcome: 10:37 Discharge ordered by . wiliam 11:00 Discharged to home ambulatory. kg 11:00 Condition: improved 11:00 Discharge instructions given to patient, Instructed on discharge instructions, follow up and referral plans. Demonstrated understanding of instructions, follow-up care, medications, Prescriptions given X 1. 11:05 Patient left the ED. kg Signatures: Dispatcher [employer] EDSC Juice Farnsworth MD MD cha Martinez, Amelia as Martinez, Eric em1 Alanna Horan, RN RN Lashawn Stewart Corrections: (The following items were deleted from the chart) 08:30 08:26 Chief complaint: Intermittent right sided head numbness and nausea x 2 days. hb Reports this is similar to his previous cluster headaches. hb
[2020-10-13] MEDS ORDERED: hydrOXYzine HCL 25 MG TAB ONE (11:03)
[2020-10-13] MEDS ORDERED: ASPIRIN EC 81 MG TAB PO ONE (11:03)
[2020-10-13 11:12] VITALS: TEMP 97.2
[2020-10-13 11:15] VITALS: BP 131/94; O2SAT 96
--- NOTE | 2020-10-14 07:24 | EKG ---
Test Date: 2020-10-13 Test Time: 10:27:19 Director Case: STEFANIE Carmona MEASUREMENT RESULTS: Intervals: Rate: 75 WI: 122 QRSD: 78 QT: 358 QTc: 399 [place]: P: 14 WI: 122 QRS: 44 T: 41 INTERPRETIVE STATEMENTS: Normal sinus rhythm Normal ECG Compared to ECG 09/23/2016 12:55:40 No significant changes Electronically Signed On 10-14-20 07:22:08 CDT by Pj Barrow
== END 2020-10-13 11:05 | disposition home or self-care (01) ==
LOC: ER 08:21
DX: F41.9 Anxiety disorder, unspecified (principal); R20.0 Anesthesia of skin
CPT/HCPCS: 70450; 80307; 81003; 93005; 99284

== ENCOUNTER 2020-11-03 11:15 | Emergency (ER) | payer SELFPAY ==
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
== END 2020-11-03 11:28 | disposition left against medical advice (07) ==
LOC: ER 11:15
DX: Z02.9 Encounter for administrative examinations, unspecified (principal)

== ENCOUNTER 2020-11-04 07:21 | Emergency (ER) | payer OTHER, SELFPAY ==
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
--- NOTE | 2020-11-04 07:46 | EDPHYS ---
Physician Documentation [facility] Name: Zachary Davila Age: 24 yrs Sex: Male : 1995 Arrival Date: 11/04/2020 Time: 07:24 Bed 6 Private MD: ED Physician Bobby Montenegro HPI: 11/04 07:46 This 24 yrs old Male presents to ER via Ambulatory with complaints of Anxiety, kdr Headache. 07:47 MENESES and anxiety. The patient states that for the past few weeks, he has had anxiety kdr attacks that he has been treating with Xanax that he obtained from another person and not an Rx for him. He was seen yesterday [facility] and given Ativan which helped for a short time. He was not discharged with any Rx. He claims to have an appointment on the with psychiatry but dues not feel he can wait that long. He denies any specific precipitating event and has been otherwise in good health. Onset: The symptoms/episode began/occurred gradually, 1 week(s) ago. Severity of symptoms: At their worst the symptoms were moderate severe incapacitating just prior to arrival, today, in the emergency department the symptoms are unchanged. The patient has experienced similar episodes in the past, a few times. The patient has been recently seen by a physician: The patient has been recently seen at an urgent care, yesterday. 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 - Social history:: Smoking status: Patient reports the use of cigarette tobacco products, denies chronic smoking, but will smoke occasionally. ROS: 07:47 Constitutional: Negative for fever, chills, and weight loss, Eyes: Negative for injury, kdr pain, redness, and discharge, ENT: Negative for injury, pain, and discharge, Neck: Negative for injury, pain, and swelling, Cardiovascular: Negative for chest pain, palpitations, and edema, Respiratory: Negative for shortness of breath, cough, wheezing, and pleuritic chest pain, Abdomen/GI: Negative for abdominal pain, nausea, vomiting, diarrhea, and constipation, Back: Negative for injury and pain, : Negative for injury, bleeding, discharge, and swelling, MS/Extremity: Negative for injury and deformity, Skin: Negative for injury, rash, and discoloration, Psych: Negative for depression, anxiety, suicide ideation, homicidal ideation, and hallucinations, Allergy/Immunology: Negative for hives, rash, and allergies, Endocrine: Negative for neck swelling, polydipsia, polyuria, polyphagia, and marked weight changes, Hematologic/Lymphatic: Negative for swollen nodes, abnormal bleeding, and unusual bruising. 07:47 Neuro: Positive for headache, Negative for altered mental status, dizziness, gait disturbance, hearing loss, numbness, seizure activity, speech changes, syncope, near syncope, tingling. 07:47 Psych: Positive for anxiety, insomnia, Negative for depression, drug dependence, alcohol dependence, auditory hallucinations, visual hallucinations, homicidal ideation, suicide gesture, suicidal ideation, acute changes. Exam: 07:47 Constitutional: This is a well developed, well nourished patient who is awake, alert, kdr and in moderate distress. Head/Face: Normocephalic, atraumatic. Eyes: Pupils equal round and reactive to light, extra-ocular motions intact. Lids and lashes normal. Conjunctiva and sclera are non-icteric and not injected. Cornea within normal limits. Periorbital areas with no swelling, redness, or edema. Neck: Trachea midline, no thyromegaly or masses palpated, and no cervical lymphadenopathy. Supple, full range of motion without nuchal rigidity, or vertebral point tenderness. No Meningismus. Chest/axilla: Normal chest wall appearance and motion. Nontender with no deformity. No lesions are appreciated. Cardiovascular: Regular rate and rhythm with a normal S1 and S2. No gallops, murmurs, or rubs. Normal PMI, no JVD. No pulse deficits. Respiratory: Lungs have equal breath sounds bilaterally, clear to auscultation and percussion. No rales, rhonchi or wheezes noted. No increased work of breathing, no retractions or nasal flaring. Abdomen/GI: Soft, non-tender, with normal bowel sounds. No distension or tympany. No guarding or rebound. No evidence of tenderness throughout. Back: No spinal tenderness. No costovertebral tenderness. Full range of motion. Skin: Warm, dry with normal turgor. Normal color with no rashes, no lesions, and no evidence of cellulitis. MS/ Extremity: Pulses equal, no cyanosis. Neurovascular intact. Full, normal range of motion. Neuro: Awake and alert, GCS 15, oriented to person, place, time, and situation. Cranial nerves II-XII grossly intact. Motor strength 5/5 in all extremities. Sensory grossly intact. Cerebellar exam normal. Normal gait. 07:47 Psych: Behavior/mood is cooperative, anxious, Affect is animated, Oriented to person, place, time, Patient has no thoughts/intents to harm self or others. Judgement / Insight is normal. Delusions/hallucinations are not present. Vital Signs: 07:33 BP 136 / 97; Pulse 104; Resp 20; Temp 98.1; Pulse Ox 96% on R/A; Weight 77.56 kg; em Height 5 ft. 4 in. (162.56 cm); Pain 10/10; 07:33 Body Mass Index 29.35 (77.56 kg, 162.56 cm) em MDM: 07:45 Patient medically screened. kdr 07:47 Data reviewed: vital signs, nurses notes. Counseling: I had a detailed discussion with kdr the patient and/or guardian regarding: the historical points, exam findings, and any diagnostic results supporting the discharge/admit diagnosis, the need for outpatient follow up. Response to treatment: the patient's symptoms have mildly improved after treatment. Special discussion: I discussed with the patient/guardian in detail that at this point there is no indication for admission to the hospital. It is understood, however, that if the symptoms persist or worsen the patient needs to return immediately for re-evaluation. Administered Medications: 07:50 Drug: Ativan (LORazepam) 1 mg Route: PO; em 08:01 Follow up: Response: Medication administered at discharge. em 07:50 Drug: Motrin (ibuprofen) 600 mg Route: PO; em 08:01 Follow up: Response: Medication administered at discharge. em Disposition: 11/04/20 07:45 Discharged to Home. Impression: Anxiety disorder, unspecified, Headache. - Condition is Stable. - Discharge Instructions: General Headache Without Cause, Panic Attacks, Vowv-rk-Uduf, Generalized Anxiety Disorder. - Prescriptions for Ativan 1 mg Oral Tablet - take 1 tablet by ORAL route every 8 hours As needed; 10 tablet. - Medication Reconciliation Form, Thank You Letter form. - Follow up: Private Physician; When: 2 - 3 days; Reason: If symptoms return, Further diagnostic work-up, Recheck today's complaints, Continuance of care, Re-evaluation by your physician. - Problem is an acute exacerbation. - Symptoms have improved. Signatures: Bobby Montenegro MD MD kdr Derrek Lee RN RN em Corrections: (The following items were deleted from the chart) 08:01 07:45 11/04/2020 07:45 Discharged to Home. Impression: Anxiety disorder, unspecified; em Headache. Condition is Stable. Forms are Medication Reconciliation Form, Thank You Letter, Antibiotic Education, Prescription Opioid Use. Follow up: Private Physician; When: 2 - 3 days; Reason: If symptoms return, Further diagnostic work-up, Recheck today's complaints, Continuance of care, Re-evaluation by your physician. Problem is an acute exacerbation. Symptoms have improved. kdr
--- NOTE | 2020-11-04 07:46 | ER ---
Nurse's Notes [facility] Name: Zachary Davila Age: 24 yrs Sex: Male : 1995 Arrival Date: 11/04/2020 Time: 07:24 Bed 6 Private MD: Diagnosis: Anxiety disorder, unspecified;Headache Presentation: 11/04 07:33 Chief complaint: Patient states: has had cluster MENESES for years, also reports anxiety for em 5 days, [facility] and was given Ativan IV but only worked for 15 minutes, reports nausea. Coronavirus screen: Client denies travel out of the [place] in the last 14 days. Ebola Screen: Patient negative for fever greater than or equal to 101.5 degrees Fahrenheit, and additional compatible Ebola Virus Disease symptoms Patient denies exposure to infectious person. Patient denies travel to an Ebola-affected area in the 21 days before illness onset. No symptoms or risks identified at this time. Initial Sepsis Screen: Does the patient meet any 2 criteria? HR > 90 bpm. No. Patient's initial sepsis screen is negative. Does the patient have a suspected source of infection? No. Patient's initial sepsis screen is negative. Risk Assessment: Do you want to hurt yourself or someone else? Patient reports no desire to harm self or others. Onset of symptoms was November 04, 2020. 07:33 Method Of Arrival: Ambulatory em 07:33 Acuity: NIDIA 3 em Triage Assessment: 07:37 Headache History: The patient has had previous headaches and this one is similar to em previous episodes. 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 - Social history:: Smoking status: Patient reports the use of cigarette tobacco products, denies chronic smoking, but will smoke occasionally. Screenin:36 Abuse screen: Denies threats or abuse. Nutritional screening: No deficits noted. em Tuberculosis screening: No symptoms or risk factors identified. Fall Risk None identified. Assessment: 07:37 General: Appears in no apparent distress. uncomfortable, Behavior is cooperative, em anxious, Smells of alcohol. Pain: Complains of pain in head Pain currently is 10 out of 10 on a pain scale. Neuro: Level of Consciousness is awake, alert, obeys commands, Oriented to person, place, time, situation, Reports headache. Cardiovascular: Capillary refill < 3 seconds Patient's skin is warm and dry. Respiratory: Airway is patent Respiratory effort is even, unlabored, Respiratory pattern is regular, symmetrical. GI: Reports nausea, vomiting. Derm: Skin is intact, is healthy with good turgor, Skin is pink, warm \T\ dry. Musculoskeletal: Capillary refill < 3 seconds, Range of motion: intact in all extremities. Vital Signs: 07:33 BP 136 / 97; Pulse 104; Resp 20; Temp 98.1; Pulse Ox 96% on R/A; Weight 77.56 kg; em Height 5 ft. 4 in. (162.56 cm); Pain 10/10; 07:33 Body Mass Index 29.35 (77.56 kg, 162.56 cm) em ED Course: 07:24 Patient arrived in ED. mr 07:25 Derrek Lee, RN is Primary Nurse. em 07:27 Bobby Montenegro MD is Attending Physician. kdr 07:35 Triage completed. em 07:36 Arm band placed on. em 07:36 Patient has correct armband on for positive identification. Bed in low position. Call em light in reach. Pulse ox on. NIBP on. 07:58 No provider procedures requiring assistance completed. Patient did not have IV access em during this emergency room visit. Administered Medications: 07:50 Drug: Ativan (LORazepam) 1 mg Route: PO; em 08:01 Follow up: Response: Medication administered at discharge. em 07:50 Drug: Motrin (ibuprofen) 600 mg Route: PO; em 08:01 Follow up: Response: Medication administered at discharge. em Outcome: 07:45 Discharge ordered by . kdr 07:58 Discharged to home ambulatory. em 07:58 Condition: stable 07:58 Discharge instructions given to patient, Instructed on discharge instructions, follow up and referral plans. no drinking with medication, no driving heavy equipment, Demonstrated understanding of instructions, follow-up care, medications, Prescriptions given X 1. 08:01 Patient left the ED. em Signatures: Bobby Montenegro MD MD kdr RiveraElysia mr Derrek Lee, RN RN em
[2020-11-04] MEDS ORDERED: IBUPROFEN 200 MG TAB PO ONE (08:06)
[2020-11-04] MEDS ORDERED: IBUPROFEN 400 MG TAB ONE (08:06)
[2020-11-04] MEDS ORDERED: LORAZEPAM 1 MG TABLET ONE (08:06)
[2020-11-04 08:07] VITALS: BP 136/97; TEMP 98.1; O2SAT 96
== END 2020-11-04 08:01 | disposition home or self-care (01) ==
LOC: ER 07:21
DX: F41.9 Anxiety disorder, unspecified (principal); R51.9 Headache, unspecified; F17.210 Nicotine dependence, cigarettes, uncomplicated
CPT/HCPCS: 99283

== ENCOUNTER 2022-07-31 12:54 | Emergency (ER) | payer OTHER ==
--- OUTSIDE RECORDS SUMMARY | 2022-07-31 13:04 | XMS REPORT | Continuity of Care Document ---
:1995 Author Organization [facility] t Address [address] [place] [address] Dr. Re[address]. [address] [place] [address] Care Team Providers Name Role Phone Pcp, Patient Does Not Have A Primary Care Physician [id number] ALEKS URRUTIA Attending Clinician Unavailable BUSTER WARNER Attending Clinician Unavailable Doctor Unassigned, [place] Attending Clinician Unavailable Aleks Urrutia MD Attending Clinician [phone] Hakeem Solis MD Attending Clinician Peri Green Attending Clinician Problems This patient has no known problems. Allergies, Adverse Reactions, Alerts Allergy Allergy Status Severity Reaction(s) Onset Inactive Treating Comm ents Source Name Type Date Date Clinician NO KNOWN Drug Active Univers ALLERGIE Class ity of S [facility]ly [facility] Social History Social Habit Start Date Stop Date Quantity Comments Source Exposure to Not sure [facility] SARS-CoV-2 (event) Medica l Branch Sex Assigned At [birth year] [facility] 00:00:00 00:00:00 Medical Branch Smoking Status Start Date Stop Date Source Unknown if ever smoked [facility] Medications Ordered Filled Start Stop Current Ordering Indication Dosage Frequency Signature Comments Components Source Medication Medication Date Date Medication? Clinician (SIG) Name Name FENTanyl 2019-06 2020- No 200ug 200 mcg, Uni vers (ACTIQ) 07-04 11-19 Buccal, ity of lollipop 21:15: 20:07 ONCE, 1 [place] 200 mcg 00 :00 dose, [facility] 05/04/20 Branch at 1515, Routine mupirocin 2019-06 2020- No Univers (BACTROBAN 07-02 ity of OINT) 2 % 03:45: 02:40 [place] skin 00 :00 Medical ointment Branch tetanus-dip 2019-06 2020- No .5mL 0.5 mL, Un donnie htheria 07-02 Intramuscu ity o f toxoids 03:30: 15:29 lar, ONCE, Mar[place] as (TENIVAC) 00 :00 1 dose, Medical 5-2 Lf [facility] Branch unit/0.5 mL 05/01/20 injection at 2130, 0.5 mL Routine hydrOXYzine 2019-06- No 25mg 25 mg, Uni vers (ATARAX) 07-02 Oral, ity of tablet 25 03:15: 02:29 ONCE, 1 [place] mg 00 :00 dose, [facility] 05/01/20 Branch at 2115, DEVENDRA mupirocin 2 2019-06 Yes [id number] Apply to Univers % ointment 1-16 area(s) 3 ity of 00:00: (three) [place] 00 times Medical daily. Branch hydrOXYzine 2019-06 Yes [id number] 25mg Take 1 Univers 25 mg 1-16 tablet by ity of tablet 00:00: mouth [place] 00 every 6 Medical (six) Branch hours as needed for Itching. mupirocin 2 2019-06 Yes [id number] Apply to Univers % ointment 1-16 area(s) 3 ity of 00:00: (three) [place] 00 times Medical daily. Branch hydrOXYzine 2019-06 Yes [id number] 25mg Take 1 Univers 25 mg 1-16 tablet by ity of tablet 00:00: mouth [place] 00 every 6 Medical (six) Branch hours as needed for Itching. mupirocin 2 2019-06 Yes [id number] Apply to Univers % ointment 1-16 area(s) 3 ity of 00:00: (three) [place] 00 times Medical daily. Branch hydrOXYzine 2019-06 Yes [id number] 25mg Take 1 Univers 25 mg 1-16 tablet by ity of tablet 00:00: mouth [place] 00 every 6 Medical (six) Branch hours as needed for Itching. mupirocin 2 2019-06 Yes [id number] Apply to Univers % ointment 1-16 area(s) 3 ity of 00:00: (three) [place] 00 times Medical daily. Branch mupirocin 2 2019-06 Yes [id number] Apply to Univers % ointment 1-16 area(s) 3 ity of 00:00: (three) [place] 00 times Medical daily. Branch hydrOXYzine 2019-06 Yes [id number] 25mg Take 1 Univers 25 mg 1-16 tablet by ity of tablet 00:00: mouth [place] 00 every 6 Medical (six) Branch hours as needed for Itching. hydrOXYzine 2019-06 Yes [id number] 25mg Take 1 Univers 25 mg 1-16 tablet by ity of tablet 00:00: mouth [place] 00 every 6 Medical (six) Branch hours as needed for Itching. Vital Signs Vital Name Observation Time Observation Value Comments Source Systolic blood 2020-05-15 18:12:00 121 mm[Hg] [facility] 2020-05-15 18:12:00 83 mm[facility]Hg[facility] 2020-05-15 18:12:00 91 /min [facility] Body temperature 2020-05-15 18:12:00 36.83 Jazmine [facility] Respiratory rate 2020-05-15 18:12:00 14 /min [facility] Body weight 2020-05-15 18:12:00 80.287 kg [facility] BMI 2020-05-15 18:12:00 30.38 kg/m2 [facility] Oxygen saturation in 2020-05-15 18:12:00 99 /min [facility] Arterial blood by [facility] Pulse oximetry Branch Systolic blood 2020-05-15 18:12:00 121 mm[Hg] [facility] Diastolic blood 2020-05-15 18:12:00 83 mm[Hg] [facility] 2020-05-15 18:12:00 91 /min [facility] Body temperature 2020-05-15 18:12:00 36.83 Jazmine [facility] Respiratory rate 2020-05-15 18:12:00 14 /min [facility] [place] [facility] Body weight 2020-05-15 18:12:00 80.287 kg [facility] [place] [facility] BMI 2020-05-15 18:12:00 30.38 kg/m2 [facility] [place] [facility] Oxygen saturation in 2020-05-15 18:12:00 99 /min University of Arterial blood by [facility] Pulse oximetry Branch Body weight 2020-05-04 20:22:00 79.379 kg [facility] [place] [facility] BMI 2020-05-04 20:22:00 30.04 kg/m2 [facility] [place] [facility] Oxygen saturation in 2020-05-04 20:22:00 99 /min University of Arterial blood by [facility] Pulse oximetry Branch Systolic blood 2020-05-04 20:22:00 117 mm[Hg] Univer sity of pressure [place] [facility] Diastolic blood 2020-05-04 20:22:00 71 mm[Hg] Unive rsity of pressure [place] [facility] Heart rate 2020-05-04 20:22:00 73 /min [facility] [place] [facility] Body temperature 2020-05-04 20:22:00 37.44 Jazmine [facility] [place] [facility] Respiratory rate 2020-05-04 20:22:00 18 /min [facility] [place] [facility] Body weight 2020-05-04 20:22:00 79.379 kg [facility] [place] [facility] BMI 2020-05-04 20:22:00 30.04 kg/m2 [facility] [place] [facility] Oxygen saturation in 2020-05-04 20:22:00 99 /min University of Arterial blood by [facility] Pulse oximetry Branch Systolic blood 2020-05-04 20:22:00 117 mm[Hg] Univer sity of pressure [place] [facility] Diastolic blood 2020-05-04 20:22:00 71 mm[Hg] Unive rsity of pressure [place] [facility] Heart rate 2020-05-04 20:22:00 73 /min [facility] [place] [facility] Body temperature 2020-05-04 20:22:00 37.44 Jazmine [facility] [place] [facility] Respiratory rate 2020-05-04 20:22:00 18 /min [facility] [place] [facility] Systolic blood 2020-05-02 01:00:00 145 mm[Hg] Univer sity of pressure [place] [facility] Diastolic blood 2020-05-02 01:00:00 82 mm[Hg] Unive rsity of pressure [place] [facility] Heart rate 2020-05-02 01:00:00 71 /min [facility] [place] [facility] Body temperature 2020-05-02 01:00:00 37.33 Jazmine [facility] [place] [facility] Respiratory rate 2020-05-02 01:00:00 16 /min [facility] [place] [facility] Body height 2020-05-02 01:00:00 162.6 cm [facility] [place] [facility] Body weight 2020-05-02 01:00:00 82.373 kg [facility] [place] [facility] BMI 2020-05-02 01:00:00 31.17 kg/m2 [facility] [place] [facility] Oxygen saturation in 2020-05-02 01:00:00 100 /min University of Arterial blood by [facility] Pulse oximetry Branch Systolic blood 2020-05-02 01:00:00 145 mm[Hg] Univer sity of pressure [place] [facility] Diastolic blood 2020-05-02 01:00:00 82 mm[Hg] Unive rsity of pressure [place] [facility] Heart rate 2020-05-02 01:00:00 71 /min [facility] [place] [facility] Body temperature 2020-05-02 01:00:00 37.33 Jazmine [facility] [place] [facility] Respiratory rate 2020-05-02 01:00:00 16 /min [facility] [place] [facility] Body height 2020-05-02 01:00:00 162.6 cm [facility] [place] [facility] Body weight 2020-05-02 01:00:00 82.373 kg [facility] [place] [facility] BMI 2020-05-02 01:00:00 31.17 kg/m2 [facility] [place] [facility] Oxygen saturation in 2020-05-02 01:00:00 100 /min University of Arterial blood by [facility] Pulse oximetry Branch Procedures Procedure Date / Time Performed Performing Clinician [facility] e REFERRAL- 2021-03-19 05:01:00 Doctor Unassigned, No [facility] [place] REQUEST/RESPONSE Name Medical Branch EXTERNAL PROVIDER 2020-05-24 06:01:00 Doctor Unassigned, No [facility] [place] RECORDS Name Medical Branch NOTICE OF PRIVACY 2020-05-02 00:54:14 Doctor Unassigned, No [facility] [place] PRACTICES Name Medical Branch CONSENT/REFUSAL FOR 2020-05-02 00:53:54 [facility]igned, No [facility] Name Medical Branch TREATMENT Encounters Start End Encounter Admission Attending Care Care Encounter Source Date/Time Date/Time Type Type Clinicians Facility Department ID 2020-05-04 Inpatient Mathew URRUTIA, [facility] [id number] Univers 13:58:[address] [facility] 2021-03-26 2021-03-26 Outpatient R WARNER, [facility] [id number] Univers 10:00:00 10:00:[address] [facility] 2021-03-19 2021-03-19 Orders Doctor SOUTH [id number] Univers 00:00:00 00:00:00 Only Unassigned, RUBINA [id number] ity of [facility] [id number] Mariano as [id number] [address] 2020-05-24 2020-05-24 Orders Doctor SOUTH [id number] Univers 00:00:00 00:00:00 Only Unassigned, RUBINA [id number] ity of [place] [facility] [id number] Mar[place] as [id number] [address] 2020-05-24 2020-05-24 Orders Doctor SOUTH [id number] 00:00:00 00:00:00 Only Unassigned, RUBINA [id number] [facility] [id number] [facility] 2020-05-15 2020-05-15 [facility] Aleks Urrutia 1. [id number] Univers 12:10:48 23:59:00 Encounter Hakeem Solis [id number] ity of Hospital [id number] [place] [id number] [address] 2020-05-15 2020-05-15 [facility] Marisela Urrutia [id number] 12:10:48 23:59:00 Encounter Aleks Bills [id number] [facility] [id number] 2020-05-15 2020-05-15 Outpatient O JOSE LUIS [facility] [id number] Univers 12:30:00 12:30:00 ALEKS itnia [facility] 2020-05-04 2020-05-04 [facility] Marisela Urrutia [id number] Univers 12:30:00 23:59:00 Encounter Aleks Bills [id number] ity [facility] [id number] [place] [id number] [address] 2020-05-04 2020-05-04 [facility] Marisela Urrutia [id number] 12:30:00 23:59:00 Encounter Aleks Bills [id number] [facility] [id number] [facility] 2020-05-01 2020-05-01 Emergency [facility] [id number] Univers 19:01:00 21:14:00 [place]i [place] [id number] ity [facility] [id number] [facility] [id number] [address] 2020-05-01 2020-05-01 Emergency [facility] [id number] 19:01:00 21:14:00 Peri [place] [id number] [place] [id number] [place] [id number] [facility] 2020-05-01 2020-05-01 Emergency X [facility] [[email or web address] ERT [id number] Univers 18:52:00 18:52:00 ity [facility] Results This patient has no known results.
--- NOTE | 2022-07-31 14:24 | RAD REPORT ---
EXAM DESCRIPTION: US - Scrotum Testicles - 07/31/2022 2:05 pm CLINICAL HISTORY: right testicular pain COMPARISON: Abdomen Pelvis Wo Contrast dated 07/31/2022 FINDINGS: The right testicle measures 3.8 by 2.6 x 1.9 cm with volume of 10 cc. No intratesticular m asses or evidence of testicular torsion. The left testicle measures 3.0 x 2.6 x 1.7 cm with volume of 6.8 cc.. No intratesticular masses or ev idence of testicular torsion. Both epididymides are normal in size and appearance. No pathologic fluid collections. IMPRESSION: Bilateral testicular blood flow. No acute findings identified.
--- NOTE | 2022-07-31 14:28 | RAD REPORT ---
EXAM DESCRIPTION: CTAbdomen Pelvis Wo Contrast - 07/31/2022 2:08 pm CLINICAL HISTORY: FLANK PAIN COMPARISON: No comparisons TECHNIQUE: CT of the abdomen and pelvis was performed. All CT scans are performed using dose optimization technique as appropriate and may include automated exposure control or mA/KV adjustment according to patient size. FINDINGS: Lower chest: No acute abnormality. Liver: Hepatic steatosis Biliary: No biliary ductal dilatation. Stomach: No significant focal abnormality. Duodenum: No significant focal abnormality. Pancreas: No significant abnormality. Spleen: No significant abnormality. Adrenal: No suspicious lesions. Kidney/ureter: No hydronephrosis. No renal calculi. Retroperitoneum: No retroperitoneal adenopathy. Vascular: No aneurysm. Bowel: No significant focal abnormality. Normal appendix. Peritoneum: No ascites or free air. Small fat containing umbilical hernia. Bladder: Bladder wall thickening versus underdistention. Reproductive: No adnexal masses. Bones: No acute fracture. Other: n/a IMPRESSION: No acute intra-abdominal or pelvic finding.
[2022-07-31 15:17] LABS: Absolute Lymphocytes (CBC) 2.3 K/uL (0.7-4.9); Hematocrit 43.8 % (39.6-49.0); Lymphocytes % 32.6 % (15.3-44.8); MCV 93.8 fL (80-100); MPV 7.7 fL (7.6-11.3); RBC Red Blood Cell Count 4.66 M/uL (4.33-5.43)
[2022-07-31 15:21] LABS: Urine Blood Negative (Negative); Urine Glucose Negative (Negative); Urine Protein Negative (Negative); Urine Specific Gravity 1.015 (1.005-1.030)
[2022-07-31 15:31] LABS: Albumin 4.4 g/dL (3.4-5.0); Bilirubin Total 0.5 mg/dL (0.2-1.0); Protein, Total 8.2 g/dL (6.4-8.2)
--- NOTE | 2022-07-31 15:53 | ER ---
Nurse's Notes [facility] Name: Zachary Davila Age: 26 yrs Sex: Male : 1995 Arrival Date: 07/31/2022 Time: 12:59 Bed 23 Private MD: Diagnosis: Other abdominal pain Presentation: 07/31 13:40 Chief complaint: Patient states: he is having right sided flank pain. patient states ap3 the pain is a 9/10, but the pain has been coming and going over the last few months. Patient also complains of pain the right testicle. Coronavirus screen: At this time, the client does not indicate any symptoms associated with coronavirus-19. Ebola Screen: No symptoms or risks identified at this time. Initial Sepsis Screen: Does the patient meet any 2 criteria? No. Patient's initial sepsis screen is negative. Does the patient have a suspected source of infection? No. Patient's initial sepsis screen is negative. Risk Assessment: Do you want to hurt yourself or someone else? Patient reports no desire to harm self or others. Onset of symptoms is unknown. 13:40 Method Of Arrival: Ambulatory ap3 13:40 Acuity: NIDIA 3 ap3 Triage Assessment: 13:42 General: Appears in no apparent distress. Behavior is calm, cooperative, appropriate ap3 for age. Pain: Complains of pain in right flank, right testicle. Neuro: Level of Consciousness is awake, alert, obeys commands, Oriented to person, place, time, situation. Cardiovascular: Patient's skin is warm and dry. Respiratory: Airway is patent Respiratory effort is even, unlabored, Respiratory pattern is regular, symmetrical. 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 - Social history:: Smoking status: Patient denies any tobacco usage or history of. Patient uses alcohol, only on a social basis. Screenin:43 [facility] ED Fall Risk Assessment (Adult) History of falling in the last 3 months, ap3 including since admission No falls in past 3 months (0 pts). Abuse screen: Denies threats or abuse. Nutritional screening: No deficits noted. Tuberculosis screening: No symptoms or risk factors identified. Assessment: 15:04 General: SEE TRIAGE NOTE. bp 16:34 Reassessment: PT DC HOME. bp Vital Signs: 13:40 Pulse 73; Resp 17; Temp 98.3; Pulse Ox 98% ; Weight 79.38 kg; ap3 13:40 BP 133 / 89; ap3 15:41 BP 125 / 85; Pulse 65; Resp 16; Pulse Ox 96% ; bp ED Course: 12:59 Patient arrived in ED. rg4 13:31 Kvng Felipe MD is Attending Physician. bs3 13:41 Triage completed. ap3 13:43 Arm band placed on right wrist. ap3 14:58 Teto Catalan, RN is Primary Nurse. bp 15:08 Comprehensive Metabolic Panel Sent. bc6 15:08 CBC with Diff Sent. bc6 15:08 Inserted saline lock: 20 gauge in right antecubital area, using aseptic technique. bc6 15:42 Patient has correct armband on for positive identification. Bed in low position. Call bp light in reach. Side rails up X2. 16:34 No provider procedures requiring assistance completed. IV discontinued, intact, bp bleeding controlled, No redness/swelling at site. Pressure dressing applied. Administered Medications: No medications were administered Medication: 16:34 VIS not applicable for this client. bp Outcome: 15:53 Discharge ordered by . bs3 16:34 Discharged to home ambulatory. bp 16:34 Condition: stable 16:34 Discharge instructions given to patient, Instructed on discharge instructions, follow up and referral plans. Demonstrated understanding of instructions, follow-up care. 16:38 Patient left the ED. bp Signatures: Ruby [place] rg4 Teto Catalan, [place] RN bp Renay Alexander RN RN ap3 Kvng Felipe MD MD bs3 Kenia Walton bc6 Corrections: (The following items were deleted from the chart) 13:42 13:41 Allergies: NKA; ap3 ap3
--- NOTE | 2022-07-31 15:54 | EDPHYS ---
Physician Documentation [facility] Name: Zachary Davila Age: 26 yrs Sex: Male : 1995 Arrival Date: 07/31/2022 Time: 12:59 Bed 23 Private MD: ED Physician Kvng Felipe HPI: 07/31 15:50 This 26 yrs old Male presents to ER via Ambulatory with complaints of Flank bs3 Pain. 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 - Social history:: Smoking status: Patient denies any tobacco usage or history of. Patient uses alcohol, only on a social basis. ROS: 15:50 Constitutional: Negative for fever, chills bs3 15:50 All other systems are negative. Exam: 15:50 Constitutional: This is a well developed, well nourished patient who is awake, alert, bs3 and in no acute distress. Head/Face: Normocephalic, atraumatic. Eyes: Pupils equal round and reactive to light, extra-ocular motions intact. Lids and lashes normal. ENT: mmm, no posterior phyarngeal erythema Neck: Trachea midline, no thyromegaly, no neck stiffness Chest/axilla: Normal chest wall appearance and motion. Nontender with no deformity. No lesions are appreciated. Cardiovascular: Regular rate and rhythm with a normal S1 and S2. symmetric pulses in upper extremities Respiratory: Lungs have equal breath sounds bilaterally, clear to auscultation, no respiratory distress Abdomen/GI: Soft, non-tender, no rebound or guarding Back: No spinal tenderness. No costovertebral tenderness. Full range of motion. Male : Normal genitalia with no discharge or lesions. Skin: Warm, dry with normal turgor. Normal color with no rashes, no lesions, and no evidence of cellulitis. MS/ Extremity: Pulses equal, no cyanosis. Neurovascular intact. Full, normal range of motion. Neuro: Awake and alert, GCS 15, oriented to person, place, time, and situation. Cranial nerves II-XII grossly intact. Motor strength 5/5 in all extremities. Sensory grossly intact. Psych: Awake, alert, with orientation to person, place and time. Behavior, mood, and affect are within normal limits. Vital Signs: 13:40 Pulse 73; Resp 17; Temp 98.3; Pulse Ox 98% ; Weight 79.38 kg; ap3 13:40 BP 133 / 89; ap3 15:41 BP 125 / 85; Pulse 65; Resp 16; Pulse Ox 96% ; bp MDM: 13:31 Patient medically screened. bs3 15:50 Differential diagnosis: nephrolithiasis, pyelonephritis, UTI, testicular torsion, bs3 Gallbladder pathology. Independent interpretation of the following test(s) in the Emergency Department CT Scan: My interpretation is No kidney stones, no gallstones. Care significantly affected by the following Social Determinants of Health: Poor access to healthcare and/or lack of insurance. ED course: There is a broad differential including cholecystitis, testicular torsion urinary tract infection Suleiman or kidney stone I do not think he has a given his age although this was considered his work-up was nondiagnostic his labs were notable for slightly elevated LFTs I advised him to follow-up with primary care for repeat testing advised to discontinue alcohol use return precautions given. 15:59 Data reviewed: vital signs, nurses notes. ED course: advised to dc alcohol, and bs3 attempte weight loss. 07/31 13:41 Order name: CBC with Diff bs3 07/31 13:41 Order name: Comprehensive Metabolic Panel bs3 07/31 13:41 Order name: CT Abd/Pelvis - Without Contrast bs3 07/31 15:17 Order name: CBC with Automated Diff; Complete Time: 15:49 EDMS 07/31 15:22 Order name: Urine Dipstick-Ancillary; Complete Time: 15:49 EDMS 07/31 15:32 Order name: Comprehensive Metabolic Panel; Complete Time: 15:49 EDMS 07/31 13:41 Order name: Urine Dipstick-Ancillary (obtain specimen); Complete Time: 15:41 bs3 07/31 13:41 Order name: US Scrotum Testicles bs3 07/31 14:24 Order name: US; Complete Time: 15:49 EDMS 07/31 14:28 Order name: CT; Complete Time: 15:49 EDMS Administered Medications: No medications were administered Disposition Summary: 07/31/22 15:53 Discharge Ordered Location: Home bs3 Problem: new bs3 Symptoms: are unchanged bs3 Condition: Stable bs3 Diagnosis - Other abdominal pain bs3 Followup: bs3 - With: Private Physician - When: 2 - 3 days - Reason: Re-evaluation by your physician Discharge Instructions: - Discharge Summary Sheet bs3 - Abdominal Pain, Adult, [id number] bs3 - Form - Return To Work bs3 Forms: - Medication Reconciliation Form bs3 - Work release form ss - Thank You Letter bs3 - Antibiotic Education bs3 - Prescription Opioid Use bs3 Signatures: Dispatcher [employer] [facility] Renay Alexander RN RN ap3 Kvng Felipe MD MD bs3 Corrections: (The following items were deleted from the chart) 13:42 13:41 Allergies: NKA; ap3 ap3
[2022-07-31 16:50] VITALS: TEMP 98.3
[2022-07-31 16:56] VITALS: BP 125/85; O2SAT 96
== END 2022-07-31 16:38 | disposition home or self-care (01) ==
LOC: ER 12:54
DX: R10.9 Unspecified abdominal pain (principal)
CPT/HCPCS: 36415; 74176; 76870; 80053; 81003; 85025

== ENCOUNTER 2022-12-25 01:09 | Emergency (ER) | payer OTHER ==
[2022-12-25 01:59] LABS: Absolute Lymphocytes (CBC) 4.2 K/uL (0.7-4.9); Hematocrit 42.8 % (39.6-49.0); Lymphocytes % 47.7 % (15.3-44.8); MCV 94.4 fL (80-100); MPV 8.1 fL (7.6-11.3); RBC Red Blood Cell Count 4.53 M/uL (4.33-5.43)
[2022-12-25 02:07] LABS: Albumin 3.8 g/dL (3.4-5.0); Bilirubin Total 0.3 mg/dL (0.2-1.0); Potassium 3.7 mEq/L (3.5-5.1); Protein, Total 7.5 g/dL (6.4-8.2)
[2022-12-25] MEDS ORDERED: IBUPROFEN 400 MG TAB ONE (04:33)
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
== END 2022-12-25 04:54 | disposition home or self-care (01) ==
LOC: ER 01:09 → MERGE 01:09 → EDBD 01:09 → ER 04:54
DX: F10.129 Alcohol abuse with intoxication, unspecified (principal); S00.81XA Abrasion of other part of head, initial encounter; S93.402A Sprain of unspecified ligament of left ankle, initial encounter; S00.83XA Contusion of other part of head, initial encounter; K70.10 Alcoholic hepatitis without ascites; R74.01 Elevation of levels of liver transaminase levels; V49.49XA Driver injured in collision with other motor vehicles in traffic accident, initial encounter
CPT/HCPCS: 85025; 36415; 82565; 80053; 70450; 72125; 71260; 74177; 73630; 73590; 73610; 82077; Q9967